=== PATIENT | female | born 1995 | race Caucasian/White ===

== ENCOUNTER 2018-09-07 14:59 | Emergency (ER) | payer OTHER ==
--- NOTE | 2018-09-07 16:26 | ED PDOC ---
HPI: Chest Pain Time Seen by Provider: 09/07/18 16:04 Chief Complaint (Nursing): Chest Pain Chief Complaint (Provider): Chest Pain History Per: Patient History/Exam Limitations: no limitations Onset/Duration Of Symptoms: Hrs (1) Quality: Sharp, Tightness Additional Complaint(s): 23yo female presents to ED complaining of midsternal chest pain radiating up, occurred while in class. Patient reports pain worsens with breathing but denies fever, cough, wheezing, shortness of breath. Patient has history of asthma and is ex-smoker, last smoked 3x weeks ago. Past Medical History Reviewed: Historical Data Vital Signs: Last Vital Signs Temp 98.8 F 09/07/18 15:06 Pulse 87 09/07/18 15:06 Resp 17 09/07/18 15:06 BP 139/77 09/07/18 15:06 Pulse Ox 100 09/07/18 15:06 Primary Care Physician: Dr. Perla - Medical History PMH: Asthma - Surgical History Surgical History: No Surg Hx - Family History Family History: States: [place] (grandfather at the age of 56) - Social History Current smoker - smoking cessation education provided: No Ex-Smoker (has not smoked in the last 12 months): Yes (smoked once or twice a week) Alcohol: None Drugs: Denies - Allergies Allergies/Adverse Reactions: Allergies Allergy/AdvReac Type Severity Reaction Status Date / Time No Known Allergies Allergy Verified 09/07/18 15:11 Wells Criteria for PE - Wells Criteria for Pulmonary Embolism Clinical Signs and Symptoms of DVT: No P.E is #1 Diagnosis, or Equally Likely: No Heart Rate >100: No Immobilization at least 3 days;Surgery previous 4 weeks: No Previous, objectively diagnosed PE or DVT: No Hemoptysis: No Malignancy w/treatment within 6 months, or palliative: No Total Score: 0 Review of Systems ROS Statement: Except As Marked, All Systems Reviewed And Found Negative Constitutional: Negative for: Fever Cardiovascular: Positive for: Chest Pain Respiratory: Negative for: Cough, Shortness of Breath, Wheezing Gastrointestinal: Negative for: Nausea, Vomiting, Diarrhea Physical Exam - Reviewed Nursing Documentation Reviewed: Yes - Physical Exam Appears: Positive for: Non-toxic, No Acute Distress Head Exam: Positive for: ATRAUMATIC, NORMAL INSPECTION, NORMOCEPHALIC Skin: Positive for: Normal Color Eye Exam: Positive for: Normal appearance ENT: Positive for: Normal ENT Inspection Neck: Positive for: Supple Cardiovascular/Chest: Positive for: Regular Rate, Rhythm. Negative for: Chest Non Tender (reproducible midsternal tenderness), Tachycardia Respiratory: Positive for: Normal Breath Sounds. Negative for: Wheezing Gastrointestinal/Abdominal: Positive for: Normal Exam Back: Positive for: Normal Inspection Extremity: Positive for: Normal ROM Neurological/Psych: Positive for: Awake, Alert, Normal Tone - Laboratory Results Result Diagrams: 09/07/18 17:03 09/07/18 17:03 - ECG ECG: Positive for: Interpreted By Me, Viewed By Me ECG Rhythm: Positive for: Sinus Rhythm, Right Bundle Branch Block (incomplete) Rate: 90 O2 Sat by Pulse Oximetry: 100 (RA) Pulse Ox Interpretation: Normal Medical Decision Making Medical Decision Making: Impression: 23yo female with midsternal chest pain Plan: Labs -- EKG -- CXR 1824 Labs reviewed, patient with mildly elevated potassium level K-dur ordered CXR with no clinically significant abnormalities 1851 Repeat EKG presented abnormal EKG and no ST elevation Patient provided referral to folding machine setter and PMD On reevaluation, patient looks comfortable, feels better and will be discharged. Scribe Attestation: Documented by Migue Palacios training under Viki Berry acting as a scribe for Janiya Seay MD. Provider Attestation: All medical record entries made by the Scribe were at my direction and per sonally dictated by me. I have reviewed the chart and agree that the record accurately reflects my personal performance of the history, physical exam, medical decision making, and the department course for this patient. I have also personally directed, reviewed, and agree with the discharge instructions and disposition. Disposition - Clinical Impression Clinical Impression: Muscular pain - Disposition Referrals: Duncan Benson MD [Staff Provider] - Disposition Time: 18:51 Condition: IMPROVED Additional Instructions: follow up with your primary doctor in 1-2 days, you will need to follow up with a folding machine setter for abnormal ekg take motrin for pain as needed return to the ED With any worsening or concerning symptoms Instructions: Costochondritis (DC) Forms: [employer] (Bulgarian)
[2018-09-07] MEDS ORDERED: Albuterol 0.083% Inhal Sol (2.5 mg/3 mL) UD INH ONE (16:56)
[2018-09-07] MEDS ORDERED: Albuterol 0.083% Inhal Sol (2.5 mg/3 mL) UD ONE (17:02)
[2018-09-07 17:09] LABS: BASO % 0.6 % (0.0-2.0); EOS # 0.3 K/uL (0.0-0.7); EOS % 4.2 % (0.0-4.0); HEMOGLOBIN 11.9 g/dL (12.0-16.0); LYMPH # 1.6 K/uL (1.0-4.3); LYMPH % 24.3 % (20.0-40.0); MEAN CELL VOLUME 85.2 fl (81.0-99.0); MEAN CORPUSCULAR HEMOGLOBIN 28.6 pg (27.0-31.0); MEAN CORPUSCULAR HGB CONC 33.5 g/dL (33.0-37.0); MEAN PLATELET VOLUME 9.2 fl (7.2-11.7); MONO # 0.6 K/uL (0.0-0.8); NEUT # 4.2 K/uL (1.8-7.0); NEUT % 61.9 % (50.0-75.0); NRBC % 0.1 % (0.0-0.0); RBC 4.16 Mil/uL (3.80-5.20); RED CELL DISTRIBUTION WIDTH 13.9 % (11.5-14.5); WHITE BLOOD COUNT 6.8 K/uL (4.8-10.8)
[2018-09-07 17:15] LABS: ALB/GLOB RATIO 1.3 (1.0-2.1); ALBUMIN 4.6 g/dL (3.5-5.0); ALT/SGPT 21 U/L (9-52); AST/SGOT 21 U/L (14-36); BLOOD UREA NITROGEN 11 mg/dl (7-17); CALCIUM 9.3 mg/dL (8.4-10.2); GFR NON-AFRICAN AMERICAN > 60
--- NOTE | 2018-09-07 17:51 | RAD ---
Date of service: 09/07/2018 HISTORY: Chest pain. COMPARISON: No prior. TECHNIQUE: Chest PA and lateral views FINDINGS: LUNGS: No active pulmonary disease. PLEURA: No significant pleural effusion identified. No pneumothorax apparent. CARDIOVASCULAR: No aortic atherosclerotic calcification present. Normal cardiac size. No pulmonary vascular congestion. OSSEOUS STRUCTURES: No significant abnormalities. VISUALIZED UPPER ABDOMEN: Normal. OTHER FINDINGS: None. IMPRESSION: No active disease.
[2018-09-07] MEDS ORDERED: Potassium Chloride 20 mEq ER Tab PO ONE ×2 (18:22→19:02)
[2018-09-07 19:03] VITALS: BP 132/74; PULSE 72; RESP 19; TEMP 98; O2SAT 98
--- NOTE | 2018-09-08 09:46 | CARD ---
APPROVED REPORT Date of service: 09/07/2018 EKG Measurement Heart [id number] <Conclusion> Normal sinus rhythm Incomplete right bundle branch block Borderline ECG
== END 2018-09-07 19:09 | disposition home or self-care (01) ==
LOC: H.ER 14:59
DX: M79.10 Myalgia, unspecified site (principal); J45.909 Unspecified asthma, uncomplicated; Z87.891 Personal history of nicotine dependence
CPT/HCPCS: 71046; 80053; 81025; 84484; 85025; 93005; 96374; 99284; J1885